=== PATIENT | female | born 1950 | race Caucasian/White ===

== ENCOUNTER 2024-08-10 21:04 | Emergency (ER) | payer OTHER ==
--- NOTE | 2024-08-10 22:23 | RAD REPORT ---
EXAM: CT brain without contrast HISTORY: TRAUMA COMPARISON: None TECHNIQUE: Multiple contiguous axial images were obtained and a CT of the brain without contrast. Sag ittal and coronal reformats were performed. FINDINGS: No evidence of hydrocephalus, intracranial hemorrhage, or extra-axial fluid collection. The brain is normal in morphology. The calvarium is intact. The visualized paranasal sinuses and mastoid air cells are essentially clear . IMPRESSION: No evidence of acute intracranial abnormality. EXAM: CT of the cervical spine without contrast HISTORY: TRAUMA COMPARISON: None TECHNIQUE: Multiple contiguous axial images were obtained in a CT of the cervical spine without contr ast. Sagittal and coronal reformats were performed. FINDINGS: The vertebral bodies demonstrate normal height and alignment. No evidence of acute fracture or subluxation.. Moderate multilevel degenerative changes are present. No prevertebral soft tissue swelling is seen. The posterior facets are well aligned. Normal alignment of the skull base with the cervical spine is seen. The lung apices are unremarkable. Bulky right thyroid lobe with multiple calcifications. IMPRESSION: No evidence of acute osseous abnormality of the cervical spine. Multilevel degenerative changes. Bulky right thyroid lobe, suggesting underlying nodules, not well evaluated. Additional evaluation by dedicated thyroid ultrasound would be helpful if not previously performed.
--- NOTE | 2024-08-10 22:25 | ER ---
Nurse's Notes [facility] Name: Katherine Hanson Age: 74 yrs Sex: Female : 1950 Arrival Date: 08/10/2024 Time: 21:04 Bed 9 Private MD: Diagnosis: Closed head injury, superficial laceration forehead Presentation: 08/10 21:36 Chief complaint: Patient states: stepped in a hole in the yard hitting head on ground. lg3 had skin cancer removal to scalp in April and i think the flap has opened up. laceration with minimal bleeding noted to frontal area. Coronavirus screen: Client denies travel out of the [place] in the last 14 days. At this time, the client does not indicate any symptoms associated with coronavirus-19. Ebola Screen: No symptoms or risks identified at this time. Initial Sepsis Screen: Does the patient meet any 2 criteria? No. Patient's initial sepsis screen is negative. Does the patient have a suspected source of infection? No. Patient's initial sepsis screen is negative. Risk Assessment: Do you want to hurt yourself or someone else? Patient reports no desire to harm self or others. Onset of symptoms was August 10, 2024. 21:36 Method Of Arrival: Ambulatory lg3 21:36 Acuity: PEDRO 3 lg3 Triage Assessment: 21:41 General: Appears in no apparent distress. comfortable, Behavior is calm, cooperative. lg3 Pain: Denies pain. EENT: No deficits noted. No signs and/or symptoms were reported regarding the EENT system. Neuro: No deficits noted. Garcia Agitation-Sedation Scale (RASS): 0 - Alert and Calm Level of Consciousness is awake, alert, obeys commands, Oriented to person, place, time, situation. Cardiovascular: No deficits noted. Denies chest pain, shortness of breath, Capillary refill < 3 seconds Clubbing of nail beds is absent JVD is absent Patient's skin is warm and dry. Respiratory: No deficits noted. Airway is patent Respiratory effort is even, unlabored, Respiratory pattern is regular, symmetrical. GI: No deficits noted. No signs and/or symptoms were reported involving the gastrointestinal system. : No signs and/or symptoms were reported regarding the genitourinary system. Derm: Skin is intact, is healthy with good turgor, Skin is dry, Skin is normal, Skin temperature is warm Wound noted top of head and forehead. Musculoskeletal: No deficits noted. No signs and/or symptoms reported regarding the musculoskeletal system. Circulation, motion, and sensation intact. Range of motion: intact in all extremities. Historical: - Allergies: 21:41 Sulfa (Sulfonamide Antibiotics); lg3 - Home Meds: 21:41 Bystolic 5 mg oral tablet [Active]; Eliquis oral [Active]; emphesemia [Active]; lg3 - PMHx: 21:41 Hypertensive disorder; Asthma; COPD; Sleep apnea; Arthritis; afib; lg3 - PSHx: 21:41 gastric bypass; Total abdominal hysterectomy; section; carpal tunnel; lg3 Cholecystectomy; - Immunization history:: Adult Immunizations up to date. - Infectious Disease History:: Denies. - Social history:: Smoking status: Patient denies any tobacco usage or history of. Patient/guardian denies using alcohol, street drugs. Screenin:47 [facility] ED Fall Risk Assessment (Adult) History of falling in the last 3 months, al5 including since admission Yes- single mechanical fall (1 pt) Confusion or Disorientation No (0 pts) Intoxicated or Sedated No (0 pts) Impaired Gait Yes (1 pt) Mobility Assist Device Used No (0 pt) Altered Elimination No (0 pt) Score/Fall Risk Level 0 - 2 = Low Risk Oriented to surroundings, Maintained a safe environment, Hourly rounding (assess needs \T\ fall precautionary measures) done. Abuse screen: Denies threats or abuse. Denies injuries from another. Nutritional screening: No deficits noted. Tuberculosis screening: No symptoms or risk factors identified. Assessment: 22:46 General: Appears in no apparent distress. comfortable, Behavior is calm, cooperative. al5 Pain: Denies pain. Neuro: Level of Consciousness is awake, alert, obeys commands, Oriented to person, place, time, situation. Cardiovascular: Capillary refill < 3 seconds Patient's skin is warm and dry. Respiratory: Airway is patent Respiratory effort is even, unlabored, Respiratory pattern is regular, symmetrical. GI: No signs and/or symptoms were reported involving the gastrointestinal system. : No signs and/or symptoms were reported regarding the genitourinary system. EENT: No signs and/or symptoms were reported regarding the EENT system. Derm: Skin is intact, is healthy with good turgor, Skin is pink, warm \T\ dry. normal, wound to top of scalp with minimal bleeding that has stopped. Musculoskeletal: No signs and/or symptoms reported regarding the musculoskeletal system. Vital Signs: 21:36 BP 144 / 64; Pulse 82; Resp 16; Temp 97.8(O); Pulse Ox 98% on R/A; Weight 68.04 kg (R); lg3 Height 5 ft. 1 in. (R); Pain 0/10; 22:47 BP 122 / 93; Pulse 60; Resp 16; Pulse Ox 99% ; al5 21:36 Body Mass Index 28.34 (68.04 kg, 154.94 cm) lg3 21:36 Pain Scale: Adult lg3 ED Course: 21:07 Patient arrived in ED. jj6 21:38 Theodore Dallas MD is Attending Physician. sp3 21:41 Triage completed. lg3 21:41 Arm band placed on right wrist. lg3 21:53 CT Head C Spine In Process Unspecified. EDMS 22:34 Geetha Puente, RN is Primary Nurse. al5 22:47 Patient has correct armband on for positive identification. Call light in reach. al5 Provided Education on: discharge follow up, wound care. 22:47 No provider procedures requiring assistance completed. Patient did not have IV access al5 during this emergency room visit. Administered Medications: No medications were administered Medication: 22:47 VIS not applicable for this client. al5 Outcome: 22:24 Discharge ordered by . sp3 22:48 Discharged to home via wheelchair, with family, al5 22:48 Condition: good 22:48 Discharge instructions given to patient, Instructed on discharge instructions, follow up and referral plans. wound care, Demonstrated understanding of instructions, follow-up care, wound care, 22:48 Patient left the ED. al5 Signatures: Dispatcher [employer] EDMS Ruma Melendez RN RN lg3 Theodore Dallas MD MD sp3 Lizet Ortega jj6 Geetha Puente RN RN al5
--- NOTE | 2024-08-10 22:25 | EDPHYS ---
Physician Documentation [facility] Name: Katherine Hanson Age: 74 yrs Sex: Female : 1950 Arrival Date: 08/10/2024 Time: 21:04 Bed 9 Private MD: ED Physician Theodore Dallas HPI: 08/10 22:15 This 74 yrs old Female presents to ER via Ambulatory with complaints of Head Injury sp3 Without LOC-Adult, Laceration To Head, Fall Injury. 22:15 74-year-old female with history of hypertension, asthma, COPD, arthritis, atrial sp3 fibrillation on Eliquis with recent skin cancer flap on forehead and scalp performed with multiple procedures in April 2020 for now presents to the ED with mechanical ground-level fall where she fell face first onto her garden area with injury to the superior part of the forehead at the location where her flap was revised and performed. She denies LOC or any other signs or symptoms on ROS at this time. No medical prodrome prior to the fall as it was indeed mechanical.. Historical: - Allergies: 21:41 Sulfa (Sulfonamide Antibiotics); lg3 - Home Meds: 21:41 Bystolic 5 mg oral tablet [Active]; Eliquis oral [Active]; emphesemia [Active]; lg3 - PMHx: 21:41 Hypertensive disorder; Asthma; COPD; Sleep apnea; Arthritis; afib; lg3 - PSHx: 21:41 gastric bypass; Total abdominal hysterectomy; section; carpal tunnel; lg3 Cholecystectomy; - Immunization history:: Adult Immunizations up to date. - Infectious Disease History:: Denies. - Social history:: Smoking status: Patient denies any tobacco usage or history of. Patient/guardian denies using alcohol, street drugs. ROS: 22:16 Constitutional: Negative for fever, chills, and weight loss, Eyes: Negative for injury, sp3 pain, redness, and discharge, Neck: Negative for injury, pain, and swelling, Cardiovascular: Negative for chest pain, palpitations, and edema, Respiratory: Negative for shortness of breath, cough, wheezing, and pleuritic chest pain, Abdomen/GI: Negative for abdominal pain, nausea, vomiting, diarrhea, and constipation, Back: Negative for injury and pain, Skin: Negative for injury, rash, and discoloration, Psych: Negative for depression, anxiety, suicide ideation, homicidal ideation, and hallucinations, Allergy/Immunology: Negative for hives, rash, and allergies, Endocrine: Negative for neck swelling, polydipsia, polyuria, polyphagia, and marked weight changes, Hematologic/Lymphatic: Negative for swollen nodes, abnormal bleeding, and unusual bruising, 22:16 All other systems are negative, Exam: 22:17 Constitutional: This is a well developed, well nourished patient who is awake, alert, sp3 and in no acute distress. Eyes: Pupils equal round and reactive to light, extra-ocular motions intact. Lids and lashes normal. Conjunctiva and sclera are non-icteric and not injected. Cornea within normal limits. Periorbital areas with no swelling, redness, or edema. ENT: Nares patent. No nasal discharge, no septal abnormalities noted. External auditory canals are clear. Oropharynx with no redness, swelling, or masses, exudates, or evidence of obstruction, uvula midline. Mucous membranes moist. Neck: Trachea midline, no thyromegaly or masses palpated, and no cervical lymphadenopathy. Supple, full range of motion without nuchal rigidity, or vertebral point tenderness. No Meningismus. Chest/axilla: Normal chest wall appearance and motion. Nontender with no deformity. No lesions are appreciated. Cardiovascular: Regular rate and rhythm with a normal S1 and S2. No gallops, murmurs, or rubs. Normal PMI, no JVD. No pulse deficits. Respiratory: Lungs have equal breath sounds bilaterally, clear to auscultation and percussion. No rales, rhonchi or wheezes noted. No increased work of breathing, no retractions or nasal flaring. Abdomen/GI: Soft, non-tender, with normal bowel sounds. No distension or tympany. No guarding or rebound. No evidence of tenderness throughout. Back: No spinal tenderness. No costovertebral tenderness. Full range of motion. MS/ Extremity: Pulses equal, no cyanosis. Neurovascular intact. Full, normal range of motion. Neuro: Awake and alert, GCS 15, oriented to person, place, time, and situation. Cranial nerves II-XII grossly intact. Motor strength 5/5 in all extremities. Sensory grossly intact. Cerebellar exam normal. Normal gait. Psych: Awake, alert, with orientation to person, place and time. Behavior, mood, and affect are within normal limits. 22:17 Head/face: 4 cm laceration from the superior part of forehead into the scalp. Laceration is superficial and does not require repair. . Vital Signs: 21:36 BP 144 / 64; Pulse 82; Resp 16; Temp 97.8(O); Pulse Ox 98% on R/A; Weight 68.04 kg (R); lg3 Height 5 ft. 1 in. (R); Pain 0/10; 22:47 BP 122 / 93; Pulse 60; Resp 16; Pulse Ox 99% ; al5 21:36 Body Mass Index 28.34 (68.04 kg, 154.94 cm) lg3 21:36 Pain Scale: Adult lg3 MDM: 21:38 Medical Screening Exam initiated sp3 22:17 Data reviewed: vital signs, nurses notes, radiologic studies. ED course: 74-year-old sp3 female with closed head injury and superficial laceration not requiring repair. Will obtain CT scan of the head and C-spine and if negative safe discharge patient home. Wound care prior to discharge by nursing staff.. 22:24 ED course: Scans negative from a trauma standpoint. Thyroid nodules noted which I have sp3 advised patient on to follow-up with PCP.. 08/10 21:38 Order name: CT Head C Spine; Complete Time: 22:23 sp3 08/10 22:18 Order name: Wound Care; Complete Time: 22:46 sp3 Administered Medications: No medications were administered Disposition Summary: 08/10/24 22:24 Discharge Ordered Notes: Location: Home sp3 Condition: Stable sp3 Diagnosis - Closed head injury, superficial laceration forehead sp3 Followup: sp3 - With: Private Physician - When: Upon discharge from the Emergency Department - Reason: Recheck today's complaints, Continuance of care Discharge Instructions: - Discharge Summary Sheet sp3 - Head Injury, Adult sp3 Forms: - Medication Reconciliation Form sp3 - Antibiotic Education sp3 - Prescription Opioid Use sp3 - Patient Portal Instructions sp3 - Leadership Thank You Letter sp3 Signatures: Dispatcher [employer] Ruma Rocha RN RN lg3 Theodore Dallas MD MD sp3
[2024-08-10 23:21] VITALS: TEMP 97.8
[2024-08-10 23:22] VITALS: BP 122/93; O2SAT 99
== END 2024-08-10 22:48 | disposition home or self-care (01) ==
LOC: ER 21:04
DX: S01.81XA Laceration without foreign body of other part of head, initial encounter (principal); W18.30XA Fall on same level, unspecified, initial encounter; I48.91 Unspecified atrial fibrillation; Z79.01 Long term (current) use of anticoagulants; I10 Essential (primary) hypertension; J44.9 Chronic obstructive pulmonary disease, unspecified
CPT/HCPCS: 70450; 72125; 99282